=== PATIENT | male | born 1955 | race Caucasian/White ===

== ENCOUNTER 2024-01-25 13:20 | Emergency (ER) | payer MEDICARE, BC, SELFPAY ==
[2024-01-25 13:26] VITALS: BP 131/76; PULSE 105; RESP 16; TEMP 37.1; O2SAT 98; BMI 30.6
--- NOTE | 2024-01-25 16:10 | ED.GENADULT ---
HPI - General Adult General Chief complaint: Extremity Pain/Injury, Upper Stated complaint: Growth on L elbow Time Seen by Provider: 01/25/24 13:22 History of Present Illness HPI narrative: This 68-year-old male comes in with swelling, redness, and increased pain in his left elbow area. 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 He comes in today because there is increased redness with some drainage and increased pain. He arrives here with normal vital signs. Related Data Home Medications Medication Instructions Recorded Confirmed acetaminophen 500 mg tablet 500 mg PO PRN 04/20/22 09/26/22 furosemide 80 mg tablet 80 mg PO DAILY 04/20/22 01/25/24 hydroxychloroquine 200 mg tablet 200 mg PO BID 04/20/22 01/25/24 metolazone 10 mg tablet 10 mg PO 04/20/22 09/26/22 potassium chloride 20 mEq oral 20 meq PO QDAY 04/20/22 01/25/24 packet warfarin 2 mg tablet 2 mg PO 04/20/22 09/26/22 allopurinol 100 mg tablet mg PO 01/25/24 Previous Rx's Medication Instructions Recorded amoxicillin 500 mg capsule 2,000 mg (4 x 500 mg) PO ONCE #4 03/18/22 caps cephalexin 500 mg capsule 500 mg PO TID 7 days #21 caps 01/25/24 tramadol 50 mg tablet 50 mg PO Q6H PRN pain #20 tabs 01/25/24 Allergies Allergy/AdvReac Type Severity Reaction Status Date / Time azithromycin Allergy Intermediate Pulmonary Verified 01/25/24 13:36 edema methotrexate Allergy Intermediate Cough,rash Verified 01/25/24 13:36 celecoxib Allergy Unknown Verified 01/25/24 13:36 Review of Systems Status of ROS: Reports: 10 or more systems reviewed and unremarkable except as noted in History and below Narrative: Constitutional: No fevers, no weight gain or loss. Eyes: No discharge. No vision changes. HENT: No congestion, no sore throat, no ear pain. Cardiovascular: No chest pain, no palpitations. Respiratory: No shortness of breath, no wheezes, no cough. Gastrointestinal: No abdominal pain, no vomiting, no diarrhea. Genitourinary: No dysuria, no hematuria. Musculoskeletal: Tophaceous gout with worsening symptoms in his left upper extremity particularly. Skin: No rashes, no pruritis. Neurological: No dizziness, weakness, sensory change, speech change. Endo/Heme/Allergies: No bruising or bleeding. No polydipsia. Pysch: no suicidality, no anxiety, no insomnia. All other systems reviewed and are negative. 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, unspecified ankle and foot (ICD-10) Pulmonary edema ?J81.1 - Chronic pulmonary edema (ICD-10) Pulmonary embolism ?I26.99 - Other pulmonary embolism without acute cor pulmonale (ICD-10) Congestive heart failure ?I50.9 - Heart failure, unspecified (ICD-10) Sleep apnea ?G47.30 - Sleep apnea, unspecified (ICD-10) Surgical History (Updated 09/26/22 @ 08:48 by Lamar Robertson) Status post left foot surgery (12/14/20) ?Z98.890 - Other specified postprocedural states (ICD-10) H/O vasectomy ?Z98.52 - Vasectomy status (ICD-10) Status post total knee replacement, 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 HEENT: Normocephalic, atraumatic. Neck: Normal range of motion. Nontender. Supple. Heart: Intact distal pulses. Lungs: No chest discomfort. No wheezes, rhonchi, or rales. Abdomen: Nontender. Back: Normal range of motion. Extremities: Tophaceous gout with tophi in both upper extremities. The left elbow and forearm region has large swelling with surrounding erythema and some drainage that appears to be mixture of blood and purulence. Skin: Intact. No rash. Warm. No erythema or pallor. Neurologic: No altered sensation. No weakness. Alert and oriented. Psychiatric: No suicidality. No anxiety or depression. No insomnia. Nursing notes and vitals signs are reviewed. Const: Vital Signs, click to edit/add: Vital Signs - 24 hr 01/25/24 13:26 Temperature 98.8 F Pulse Rate [Right Pulse Oximeter] 105 H Respiratory Rate 16 Blood Pressure [Ri ght Upper Arm] 131/76 Pulse Oximetry 98 Oxygen Delivery Me thod Room Air Course Vital Signs Vital signs: Initial Vital Signs Temperature 98.8 F 01/25/24 13:26 Temperature Source Temporal Artery Scan 01/25/24 13:26 Pulse Rate 105 H 01/25/24 13:26 Respiratory Rate 16 01/25/24 13:26 Blood Pressure 131/76 01/25/24 13:26 Blood Pressure Mean 94 01/25/24 13:26 Blood Pressure Position Sitting 01/25/24 13:26 Pulse Oximetry 98 01/25/24 13:26 Oxygen Delivery Method Room Air 01/25/24 13:26 Vital Signs Temperature 98.8 F 01/25/24 13:26 Pulse Rate 105 H 01/25/24 13:26 Respiratory Rate 16 01/25/24 13:26 Blood Pressure 131/76 01/25/24 13:26 Pulse Oximetry 98 01/25/24 13:26 Oxygen Delivery Method Room Air 01/25/24 13:26 Temperature 98.8 F 01/25/24 13:26 Pulse Rate 105 H 01/25/24 13:26 Respiratory Rate 16 01/25/24 13:26 Blood Pressure 131/76 01/25/24 13:26 Pulse Oximetry 98 01/25/24 13:26 Oxygen Delivery Method Room Air 01/25/24 13:26 Medical Decision Making MDM Narrative Medical decision making narrative: This 68-year-old male has large growths on both forearms from toe patient has gout. He states that these symptoms have arisen over the past years but worsened in the past few months. He started on allopurinol a couple months ago. He comes in today because of increased pain and some redness with an area of drainage from a large swelling on his left forearm. I did use ultrasound to assess if there is a drainable abscess. There really is not much fluid as these are more typical tophi masses on his arms. At a cultures obtained as there is some small amount of fluid draining. The patient did receive a prescription for Keflex and tramadol. I advised him to follow-up with his primary physician and did indicate that in some cases surgical removal of tophi can be done. Discharge Plan Discharge Clinical Impression: Gout, tophaceous, Cellulitis Patient Disposition: Home, Self-Care Condition: Unchanged Additional Instructions: Take medication as prescribed. Follow up with primary physician for ongoing management. Consider using a more rapidly affective medicines such as pegloticase and/or possible surgical excision if desired. Prescriptions: New tramadol 50 mg tablet 50 mg PO Q6H PRN (Reason: pain) Qty: 20 0RF cephalexin 500 mg capsule 500 mg PO TID 7 Days Qty: 21 0RF No Action metolazone 10 mg tablet 10 mg PO Rx Instructions: twice weekly - Tue/Aurea hydroxychloroquine 200 mg tablet 200 mg PO BID furosemide 80 mg tablet 80 mg PO DAILY warfarin 2 mg tablet 2 mg PO Rx Instructions: 2mg Sun/Tue/Thurs and 1 mg other days acetaminophen 500 mg tablet 500 mg PO PRN potassium chloride 20 mEq packet 20 meq PO QDAY allopurinol 100 mg tablet PO amoxicillin 500 mg capsule 2,000 mg PO ONCE Qty: 4 3RF Rx Instructions: Take 4 capsules (2000mg) 1 hour prior to dental appointment. Follow Up/Referrals: Clayton Guzmán MD [Primary Care Provider] - Stand Alone Forms: [facility] Info Instructions Procedures Ultrasound Other exam #1: Anatomical areas examined: Left forearm Indications: Swelling with small amount of drainage suspicious for abscess. Description/findings: Tophaceous gout but no sizable enough area of abscess for drainage. Impression: Tophaceous gout. Cellulitis.
[2024-01-25 16:32] VITALS: BP 132/75; PULSE 76; RESP 16; O2SAT 98
== END 2024-01-25 17:12 | disposition home or self-care (01) ==
LOC: ED 16:51
PROVIDERS: Emergency Provider Emergency Medicine Emergency Medical Services; PCP Family Medicine
DX: M1A.9XX1 Chronic gout, unspecified, with tophus (tophi) (principal); L03.114 Cellulitis of left upper limb
CPT/HCPCS: 87070; 87186; 93971; 99283; 99284

== ENCOUNTER 2024-02-08 06:09 | Day surgery (SDC) | payer MEDICARE, BC, SELFPAY ==
[2024-02-08 06:26] VITALS: BP 117/77; PULSE 89; RESP 16; TEMP 36.9; O2SAT 97; BMI 32.9
[2024-02-08] MEDS: SODIUM CHLORIDE 0.9 % (FLUSH) 10 ML SYRINGE IVF (06:40)
[2024-02-08] MEDS: LACTATED RINGERS 1000 ML 1,000 ML 100 ML IV (06:40)
--- NOTE | 2024-02-08 07:17 | SUR.PREOP ---
INR done @ 0640, results: 2.6
--- NOTE | 2024-02-08 07:45 | W.PM.H&PU ---
History & Physical Update History & Physical Update H&P Reviewed and patient assessed: The following changes are noted below H&P Updates: INR today is 2.6 - unsuprising as he was over 3 at his clinic visit. patient has had persistent bleeding from wound. Will plan on OR today and he will hold Coumadin after. It is too late to use vitamin K and bleeding risk is not high enough for FFP.
[2024-02-08] MEDS: CEFAZOLIN 2 GM INJ IVP (08:04)
--- NOTE | 2024-02-08 08:05 | W.ANESCHARGE ---
Anesthesia Charges Start Date/Time Anesthesia Start Date: 02/08/24 Anesthesia Start Time: 07:43 Stop Date/Time Anesthesia Stop Date: 02/08/24 Anesthesia Stop Time: 09:38
[2024-02-08] MEDS: BUPIVACAINE 0.25% 30 ML INJECTION (08:13)
[2024-02-08] MEDS: PHYTONADIONE (VIT K1) 5 MG in 0.9 % SODIUM CHLORIDE 50 ml 50 ML 100 MG IVPB (08:44)
[2024-02-08 09:33] VITALS: BP 120/82; PULSE 79; RESP 16; TEMP 36.2; O2SAT 99
--- NOTE | 2024-02-08 09:38 | W.ANESCHARGE ---
Anesthesia Charges Start Date/Time Anesthesia Start Date: 02/08/24 Anesthesia Start Time: 07:43 Stop Date/Time Anesthesia Stop Date: 02/08/24 Anesthesia Stop Time: 09:38
[2024-02-08 09:45] VITALS: BP 113/80; PULSE 79; RESP 16; O2SAT 100
--- NOTE | 2024-02-08 09:55 | PM.GSPRC ---
Operative Note Date of procedure: 02/08/24 Pre-op diagnosis: 1. Left forearm hematoma 2. Left elbow hematoma 3. Chronic anticoagulation status 4. Rheumatoid nodules Post-op diagnosis: Same Type of Procedure: 1. Hematoma evacuation left elbow, 6 x 6 x 1 cm 2. Hematoma evacuation and debridement to fascia, left forearm, 6 x 4 x 2 cm Indications: The patient is a 68-year-old male with history of rheumatoid arthritis as well as gout with subcutaneous nodules. He developed swelling and pain of his left forearm approximately 2 weeks ago. He went to the emergency department. There was not felt to be any drainable collections however it was felt that he did have gout tophi that may have gotten infected. He was started on antibiotics. He followed up with his primary care provider. When he followed up with his primary care provider it appeared as though he may have developed an abscess. He was referred to surgery Clinic. At surgery clinic last week, the forearm fluid collection was found to be draining a combination of hematoma and debris. This was further drained in clinic. A fluid collection was noted over the elbow. This was aspirated. Bloody fluid returned. This was cultured and grew MSSA. The more proximal hematoma did not grow any bacteria. He return to clinic in follow-up. He had reaccumulation fibrinous clot in the forearm wound. The elbow wound was draining bloody fluid. This was opened in clinic and found to contain copious clot. The area who is diffusely and hematoma pre accumulated. The wound was packed with calcium alginate. It was felt that he would benefit from surgical evacuation given the extent of the wound. His Coumadin was held and a pressure dressing was placed. Of note, on the day of surgery, the patient's INR was 2.6. Procedure Description: After discussing the risks and benefits of the procedure, the patient signed informed consent.? The operative site was marked and the patient was brought to the operating room and placed on the operating table in supine position.? Care was taken to pad the patient's pressure points.?? The patient was then given sedation by anesthesia.?? The operative site was then prepped and draped in the usual sterile fashion.? A time-out was then performed. Calcium alginate dressing that had been placed in the wound at his clinic visit was completely removed from both wounds. The forearm wound was not noted to be bleeding. The elbow wound was oozing. Attention was turned to the elbow 1st. Clot was evacuated and the area was examined. The opening was noted to be too small to fully evaluate the depths of the wound where blood was welling up. Therefore local anesthetic was injected into the skin around the prior incision and extended proximally and distally. This was lateral to the elbow joint itself. Once this was done, cautery was used to achieve hemostasis on the wound edges. The wound was examined. Blood was pooling at the inferior aspect. There was an area of subcutaneous fat which was noted to be bleeding. This was cauterized. Decreased significantly after this. There was still diffuse oozing from the inside of the wound. This was controlled with cautery. The wound cavity that had been created by the hematoma was explored. This measured 6 x 6 cm. It tracked up toward the forearm wound however they did not connect. The space was superficial to the fascia. Once this was done the wound was irrigated with saline and packed with surgery foam and gauze. Attention was then turned to the forearm wound. Fibrinous old clot was evacuated. After anesthetizing the skin, the wound was extended distally to facilitate exposure of the space. There were firm nodules noted within the subcutaneous tissue. This had been biopsied in clinic and found to be consistent with pseudogout nodules. The space did not track below the muscle fascia. The hematoma appeared to be confined in the subcutaneous space. Once all of the old hematoma had been evacuated, hemostasis was achieved with cautery on the wound edges. Packing was removed from both wounds. Cautery was used again to achieve hemostasis from small areas of diffuse bleeding. The patient was given IV vitamin K given that his INR was still elevated, to prevent postoperative bleeding. Surgicel was placed in both wound cavities. We then left the wounds undisturbed to ensure hemostasis was achieved. After 10 minutes, there was no further bleeding noted from either wound cavity. The been no accumulation of hematoma. I then obtained a disposable wound VAC. after cleaning the skin, a wound VAC dressing was placed, bridging between both wounds. Suction was applied. There was an excellent seal. The arm was then wrapped in Kerlix and an Aaron wrap. ? The patient was then woken and transported to the recovery area in stable condition. ? The patient tolerated the procedure well. Findings: Large hematoma cavity over the left elbow with ongoing oozing. Hemostasis achieved in the hematoma was evacuated. Old hematoma noted on the left forearm. This was similarly evacuated with achievement of hemostasis. Anesthesia: MAC Surgeon: Vianey Dukes MD Estimated blood loss (mL): 200 Condition: stable Disposition: same day
[2024-02-08 10:00] VITALS: BP 109/98; PULSE 79; RESP 16; O2SAT 100
[2024-02-08 10:08] LABS: INR, Point of Care* 2.6 (0.8-1.4)
[2024-02-08 10:15] VITALS: BP 130/90; PULSE 78; RESP 16; O2SAT 100
[2024-02-08 10:30] VITALS: BP 131/94; PULSE 79; RESP 16; TEMP 36.2; O2SAT 100
== END 2024-02-08 10:40 | disposition home or self-care (01) ==
PROVIDERS: PCP Family Medicine; Visit Provider Surgery
PROC: (CPT 23930; principal; 2024-02-08 07:30)
DX: S50.12XA Contusion of left forearm, initial encounter (principal); Z79.01 Long term (current) use of anticoagulants; M06.822 Other specified rheumatoid arthritis, left elbow; M06.322 Rheumatoid nodule, left elbow
CPT/HCPCS: 23930; 00400; 85610; A6550; J0665; J0690; J1100; J2704; J3010; J3430; J7120

== ENCOUNTER 2025-08-11 08:25 | Day surgery (SDC) | payer MEDICARE, BC, SELFPAY ==
[2025-08-11] VITALS (8 sets, daily range): BP systolic 111–130; BP diastolic 77–88; PULSE 61–92; RESP 18; TEMP 36.2–37; O2SAT 93–98; BMI 34.3
[2025-08-11] MEDS: LACTATED RINGERS 1000 ML 1,000 ML 100 ML IV ×2 (08:49→12:00)
[2025-08-11] MEDS: SODIUM CHLORIDE 0.9 % (FLUSH) 10 ML SYRINGE IVF (08:49)
[2025-08-11] MEDS: MIDAZOLAM HCL 1 MG/ML inj IVP (09:39)
--- NOTE | 2025-08-11 09:52 | SUR.PREOP ---
TIME?OUT:?0939 PT/RN/MDA?VERIFICATION?OF?SURGICAL?SITE,?PROCEDURE,?AND?CONSENT OBTAINED?PRIOR?TO?INVASIVE?PROCEDURE.
[2025-08-11] MEDS: BUPIVACAINE 0.25% 30 ML 20 ML INJECTION (09:55)
--- NOTE | 2025-08-11 10:11 | SUR.OPER ---
PATIENT QUESTIONS ANSWERED SATISFACTORILY PREOPERATIVELY.? PATIENT BROUGHT TO OR #1 PER CART.? Patient positioned supine on OR #1 bed.? The perioperative?team supported arms bilaterally on arm boards.? Final approval of positioning by surgeon.
--- NOTE | 2025-08-11 10:13 | P.NB_ITS ---
Nerve Block Nerve Block Time Seen by Provider: 09:40 Date Seen: 08/11/25 Type of block requested by surgeon for post-operative analgesia: popliteal Side: right Time out performed: Yes Verification of patient name: Yes Verification of date of : Yes Site marking: site marked Name of person performing procedure: Mango Continuous monitoring Was continuous monitoring of O2 sat, B/P, monitor car operator, recorded every 15 minutes?: Yes Procedure Checklist: sterile prep, needles and gloves Ultrasound guided. Images saved: Yes Medications given in 5ml increments after negative aspiration: Marcaine %: 0.25 mL: 10 Needle gauge: 22 and Exparel mL: 10 Patient tolerated procedure well: Yes Additional comments: Needle noted adjacent to nerve Block Charges Block Charge (with Pro Fee): Sciatic Nerve Use of Ultrasound Machine for Block: Yes- US Guidance/pain block
--- NOTE | 2025-08-11 10:14 | P.ANES_ITS ---
Anesthesia Charges Start Date/Time Anesthesia Start Date: 08/11/25 Anesthesia Start Time: 09:45 Stop Date/Time Anesthesia Stop Date: 08/11/25 Anesthesia Stop Time: 12:54 Summary Extremes of Age - Over 70 or under 1: MDA Coding CPT Codes CPT Codes: ANESTH LOWER LEG BONE SURG - 03522 ([id number]) P3 - PATIENT W/SEVERE SYS DISEASE, QK - WHEEL AND CASTER REPAIRER 2-4 CNCRNT ANES PROC, QX - ELECTRONICS UTILITY WORKER SVC W/ MD MED DIRECTION Additional Codes: Summary - Extremes of Age - Over 70 or under 1: MDA ([id number])
--- NOTE | 2025-08-11 10:14 | W.ANESCHARGE ---
Anesthesia Charges Start Date/Time Anesthesia Start Date: 08/11/25 Anesthesia Start Time: 09:45 Stop Date/Time Anesthesia Stop Date: 08/11/25 Anesthesia Stop Time: 12:54 Summary Extremes of Age - Over 70 or under 1: MDA Coding CPT Codes CPT Codes: ANESTH LOWER LEG BONE SURG - 95367 ([id number]) P3 - PATIENT W/SEVERE SYS DISEASE, QK - MINER 2-4 CNCRNT ANES PROC, QX - SENIOR PROCUREMENT MANAGER SVC W/ MD MED DIRECTION Additional Codes: Summary - Extremes of Age - Over 70 or under 1: MDA ([id number])
--- NOTE | 2025-08-11 12:56 | P.ANES_ITS ---
Anesthesia Charges Start Date/Time Anesthesia Start Date: 08/11/25 Anesthesia Start Time: 09:45 Stop Date/Time Anesthesia Stop Date: 08/11/25 Anesthesia Stop Time: 12:54 Summary Extremes of Age - Over 70 or under 1: WOODYARD CRANE OPERATOR Coding CPT Codes CPT Codes: ANESTH LOWER LEG BONE SURG - 19788 ([id number]) P3 - PATIENT W/SEVERE SYS DISEASE, QK - MULTI SENSOR OPERATOR 2-4 CNCRNT ANES PROC, QX - WOODYARD CRANE OPERATOR SVC W/ MD MED DIRECTION Additional Codes: Summary - Extremes of Age - Over 70 or under 1: WOODYARD CRANE OPERATOR ([id number])
--- NOTE | 2025-08-11 12:56 | W.ANESCHARGE ---
Anesthesia Charges Start Date/Time Anesthesia Start Date: 08/11/25 Anesthesia Start Time: 09:45 Stop Date/Time Anesthesia Stop Date: 08/11/25 Anesthesia Stop Time: 12:54 Summary Extremes of Age - Over 70 or under 1: CASEY SAW OPERATOR Coding CPT Codes CPT Codes: ANESTH LOWER LEG BONE SURG - 11301 ([id number]) P3 - PATIENT W/SEVERE SYS DISEASE, QK - ANIMAL HERDER 2-4 CNCRNT ANES PROC, QX - CASEY SAW OPERATOR SVC W/ MD MED DIRECTION Additional Codes: Summary - Extremes of Age - Over 70 or under 1: CASEY SAW OPERATOR ([id number])
--- NOTE | 2025-08-11 12:59 | W.PODPROC_ITS ---
Date of Procedure: 08/11/25 Surgeon: Michael Riley DPM Pre-op Diagnosis: 1. Rheumatoid arthritis right foot 2. Hallux rigidus right foot 3. Hammertoe deformity hallux right 4. Hammertoe deformity 2nd digit right 5. Hammertoe deformity 3rd digit right 6. Hammertoe deformity 4th digit right 7. Hammertoe deformity 5th digit right 8. Metatarsalgia right foot Post-op Diagnosis: 1. Rheumatoid arthritis right foot 2. Hallux rigidus right foot 3. Hammertoe deformity hallux right 4. Hammertoe deformity 2nd digit right 5. Hammertoe deformity 3rd digit right 6. Hammertoe deformity 4th digit right 7. Hammertoe deformity 5th digit right 8. Metatarsalgia right foot Type of Procedure: 1. Haney metatarsal head resection right foot 2. First MPJ fusion right foot 3. Hammertoe repair hallux right 4. Hammertoe repair 2nd digit right 5. Hammertoe repair 3rd digit right 6. Hammertoe repair 5th digit right Indications: Patient has had ongoing pain due to rheumatoid arthritis. He has severe forefoot deformities there is elected surgical correction of. I reviewed the procedure, recovery, expectation potential complications. These include but are not limited to: Poor wound healing, infection, under correction, over correction, hardware irritation, nerve injury, flail toe, floppy toe, potential need for future surgery, complex regional pain syndrome, deep venous thrombosis, pulmonary embolism and possible . He understands risks written consent was obtained. Site was marked. All questions answered. Procedure Description: Patient had a popliteal block administered by Anesthesia in preop. He was brought into the operating room placed in supine position on operating table. IV sedation was administered and 20 mL of 0.25% Marcaine plain were injected as across the dorsal foot. He is in prepped and draped in sterile fashion standard time-out protocol followed. The right foot was exsanguinated and the tourniquet inflated. Linear incisions made over the 1st metatarsophalangeal joint extended out over the interphalangeal joint. The incision was carried down through skin subcu tissues. Linear capsular incision was made the capsular tissues reflected away from the 1st metatarsophalangeal joint and from the interphalangeal joint. Severe deformity noted at both joints with significant bony destruction sagittal saw was used to resect head of the proximal phalanx. Rongeur was used to resect the base of distal phalanx. Wound was irrigated normal sterile saline. Arthrex 4 mm bilayer graft was then sutured to the distal proximal phalanx. The deep fascia and extensor tendon were reapproximated with 3-0 Vicryl bringing the toe into excellent anatomic alignment. This completed the interpositional arthroplasty of the hallux to correct the hammertoe. Rongeur was then used to remove the cartilage and subchondral bone from the 1st metatarsal head and from the proximal phalangeal base. Wound was irrigated normal sterile saline. The base of the proximal phalanx was fenestrated further with a K-wire. Proximal phalanx was then positioned optimally on the 1st metatarsal and temporarily fixated with a K-wire. C-arm confirmed excellent position. 3.0 partially-threaded headless screw was then inserted from distal medial to proximal lateral across the fusion site. Excellent compression noted. Six hole 1st MPJ fusion plate was applied dorsally. 3.0 mm locking screws x3 were placed distally and 2 placed proximal. Additional 3.0 mm nonlocking screw was placed proximal as well. Multiple C-arm images confirmed excellent position of the fusion. Wound irrigated normal sterile saline. Capsular tissue reappr oximated with 3-0 Vicryl. Subcutaneous tissues reapproximated 4-0 Monocryl and skin closed with 4-0 Prolene. Linear incision was then made in the distal 2nd intermetatarsal space. Incision was carried down through skin subcutaneous tissues. Blunt dissection was carried down to the 2nd metatarsal head where a linear capsular periosteal incision was made. Second metatarsal head was exposed. Sagittal saw was used to transect the metatarsal neck to remove the 2nd metatarsal head in total. Blunt dissection was then carried over to the 3rd metatarsal. Third MPJ was identified and soft tissues reflected away from the metatarsal head. Sagittal saw was then used to transect metatarsal neck and remove the 3rd metatarsal head in total. C-arm confirmed excellent position. Linear incision was then made over the 4th intermetatarsal space. Incision was carried down through skin subcutaneous tissues. Blunt dissection was carried down to the 4th metatarsal head where a linear capsular periosteal incision was made. Fourth metatarsal head was exposed. Sagittal saw was used to transect the metatarsal neck to remove the 4th metatarsal head in total. Blunt dissection was then carried over to the 5th metatarsal. Fifth MPJ was identified and soft tissues reflected away from the metatarsal head. Sagittal saw was then used to transect metatarsal neck and remove the 5th metatarsal head in total. C-arm confirmed excellent position was 3 irrigated normal sterile saline. Subcutaneous tissues reapproximated 4-0 Monocryl skin closed with 4-0 Prolene. Linear incisions made over the PIPJ 2nd toe. The incision was carried down through skin subcutaneous tissues. Transverse incision was made across the extensor tendon and joint capsule at the PIPJ. Medial and lateral collateral li gaments were released. The head of the proximal phalanx was then resected with a oscillating saw. Wound was irrigated normal sterile saline. 0.045 smooth K- wire was introduced in the base of the middle phalanx and driven out through the tip of the toe. It was then driven retrogradely back into the proximal phalanx with the toe held in reduced position. C-arm confirmed position. K-wire was be nt cut and capped. Redundant extensor tendon was excised and the extensor tendon repaired with 4-0 Vicryl. Skin was then closed with 4-0 Prolene. Linear incisions made over the PIPJ 3rd toe. The incision was carried down through skin subcutaneous tissues. Transverse incision was made across the extensor tendon and joint capsule at the PIPJ. Medial and lateral collateral ligaments were released. The head of the proximal phalanx was then resected with a oscillating saw. Wound was irrigated normal sterile saline. 0.045 smooth K-wire was introduced in the base of the middle phalanx and driven out through the tip of the toe. It was then driven retrogradely back into the proximal phalanx with the toe held in reduced position. C-arm confirmed position. K-wire was bent cut and capped. Redundant extensor tendon was excised and the extensor tendon repaired with 4-0 Vicryl. Skin was then closed with 4-0 Prolene. Linear incisions made over the PIPJ 5th toe. The incision was carried down through skin subcutaneous tissues. Transverse incision was made across the extensor tendon and joint capsule at the PIPJ. Medial and lateral collateral ligaments were released. The head of the proximal phalanx was then resected with a oscillating saw. Wound was irrigated normal sterile saline. 0.045 smooth K-wire was introduced in the base of the middle phalanx and driven out through the tip of the toe. It was then driven retrogradely back into the proximal phalanx with the toe held in reduced position. C-arm confirmed position. K-wire was bent cut and capped. Redundant extensor tendon was excised and the extensor tendon repaired with 4-0 Vicryl. Skin was then closed with 4-0 Prolene. Tourniquet was released prior to closure of the toes and interspace incisions. All active bleeding ceased with cautery. Sterile dressings were applied. Capillary fill time of all digits was within normal limits. His placed a well- padded cam boot. He was transported from with PACU vital signs stable vascular status intact. We discharged home per same-day surgery protocol. He is given both written and verbal postop instructions. He is weight-bearing to the heel in the cam boot. He will use crutches walker cane or knee walker. He is given oxycodone for pain. Anesthesia: MAC, regional and local Hemostasis: ankle Estimated blood loss (mL): 40 Provider Operated C-arm: Fluoroscopy was operated by Michael Riley DPM for a haney metatarsal head resection right foot. Total images obtained with 16. Total fluoroscopy time was 00:00:11. Implants: Arthrex 1st MPJ fusion plate x1. Arthrex 3.0 locking screws x5, 3.0 nonlocking screw x1, 0.045 smooth K-wire x3. Disposition: same day
== END 2025-08-11 14:21 | disposition home or self-care (01) ==
LOC: OR 08:27
PROVIDERS: PCP Family Medicine; Visit Provider Podiatrist
PROC: (CPT 28740; principal; 2025-08-11 09:45)
DX: M20.21 Hallux rigidus, right foot (principal); M20.41 Other hammer toe(s) (acquired), right foot; M77.41 Metatarsalgia, right foot; G89.18 Other acute postprocedural pain; M05.772 Rheumatoid arthritis with rheumatoid factor of left ankle and foot without organ or systems involvement; M05.771 Rheumatoid arthritis with rheumatoid factor of right ankle and foot without organ or systems involvement
CPT/HCPCS: 28285 ×3; 28750; 28114; 01480; 64445; 73620; 76000; 76942; 99100; C1713; J0665; J0666; J0690; J1100; J2250; J2405; J2704; J3010; J3490; J7120